=== PATIENT | male | born 1970 | race Caucasian/White ===

== ENCOUNTER 2018-09-16 12:24 | Observation (INO) | payer SELFPAY ==
[2018-09-16 14:13] LABS: ABSOLUTE BASOPHILS # (AUTO) 0.1 10^3/uL (0.0-0.2); ABSOLUTE EOSINOPHILS # (AUTO) 0.4 10^3/uL (0.0-0.6); ABSOLUTE MONOCYTES (AUTO) 0.6 10^3/uL (0.1-1.4); ABSOLUTE NEUT (AUTO) 8.3 10^3/uL (1.7-8.2); BASOPHILS % (AUTO) 0.8 % (0-2); EOSINOPHILS % (AUTO) 3.8 % (0-6); HEMATOCRIT 42.3 % (37.9-51.0); LYMPHOCYTES % (AUTO) 10.1 % (13-45); MEAN CORPUSCULAR HEMOGLOBIN 29.2 pg (27.0-33.4); MEAN CORPUSCULAR VOLUME 89 fl (80-97); MONOCYTES % (AUTO) 5.4 % (3-13); PLATELET COUNT 246 10^3/uL (150-450); RED BLOOD COUNT 4.77 10^6/uL (4.35-5.55); RED CELL DISTRIBUTION WIDTH 14.5 % (11.5-14.0); SEGMENTED NEUTROPHILS % (AUTO) 79.9 % (42-78); TOTAL CELLS COUNTED % (AUTO) 100 %; WHITE BLOOD COUNT 10.4 10^3/uL (4.0-10.5)
[2018-09-16 14:16] LABS: INTERNATIONAL RATION (INR) 1.19; PROTHROMBIN TIME 15.7 SEC (11.4-15.4)
[2018-09-16 14:23] LABS: ALANINE AMINOTRANSFERASE 151 U/L (21-72); ALBUMIN 4.2 g/dL (3.5-5.0); ALKALINE PHOSPHATASE 87 U/L (38-126); ANION GAP 13 (5-19); ASPARTATE AMINO TRANSFERASE 110 U/L (17-59); BILIRUBIN,DIRECT 0.3 mg/dL (0.0-0.4); BILIRUBIN,TOTAL 0.9 mg/dL (0.2-1.3); BLOOD UREA NITROGEN 20 mg/dL (7-20); CALCIUM 9.7 mg/dL (8.4-10.2); CARBON DIOXIDE 21 mmol/L (22-30); CHLORIDE 110 mmol/L (98-107); CREATINE KINASE 116 U/L (55-170); GLUCOSE 107 mg/dL (75-110); POTASSIUM 4.6 mmol/L (3.6-5.0); SODIUM 144.1 mmol/L (137-145); TOTAL PROTEIN 6.7 g/dL (6.3-8.2)
--- NOTE | 2018-09-16 14:33 | RADIOLOGY REPORT (SQ) ---
EXAM DESCRIPTION: CHEST SINGLE VIEW COMPLETED DATE/TIME: 09/16/2018 2:18 pm REASON FOR STUDY: chest pain COMPARISON: None. EXAM PARAMETERS: NUMBER OF VIEWS: One view. TECHNIQUE: Single frontal radiographic view of the chest acquired. RADIATION DOSE: NA LIMITATIONS: None. FINDINGS: LUNGS AND PLEURA: No opacities, masses or pneumothorax. No pleural effusion. MEDIASTINUM AND HILAR STRUCTURES: No masses. Contour normal. HEART AND VASCULAR STRUCTURES: Heart normal in size. Normal vasculature. BONES: No acute findings. HARDWARE: None in the chest. OTHER: No other significant finding. IMPRESSION: No acute abnormality of the lungs in AP projection. TECHNICAL DOCUMENTATION: JOB ID: [id number] [employer]- All Rights Reserved Reading location - IP/workstation name: [email or web address]
[2018-09-16 14:46] LABS: CREATINE KINASE MB 1.96 ng/mL (<4.55)
[2018-09-16 14:47] LABS: TROPONIN I < 0.012 ng/mL
[2018-09-16] MEDS ORDERED: ACETAMINOPHEN 325 MG TABLET PO ONE (15:25)
[2018-09-16] MEDS ORDERED: MORPHINE SULFATE 10 MG/ML INJ IV ONE (15:25)
[2018-09-16] MEDS ORDERED: ONDANSETRON HCL INJ/PF 4 MG/2 ML SDV IV ONE (15:25)
[2018-09-16] MEDS ORDERED: RINGERS SOLUTION,LACTATED 1,000 ML IV ONE (15:32)
[2018-09-16] MEDS ORDERED: DEXTROSE 40% GEL 15 GM TUBE PO PRN ×2 (16:01)
[2018-09-16] MEDS ORDERED: GLUCAGON,HUMAN RECOMB 1 MG INJ IM PRN (16:01)
[2018-09-16] MEDS ORDERED: DEXTROSE 50%-WATER 25 GM/50 ML DISP.SYRIN IV PRN ×2 (16:01)
[2018-09-16] MEDS ORDERED: (PENDING PHARMACY ID) (Oxycodone Hcl/Acetaminophen [Percocet 10-325 Mg Tablet] 1 TAB) PO PRN (16:02)
--- NOTE | 2018-09-16 16:14 | PDOC H&P ---
History of Present Illness Patient complains of: loss of consciousness History of Present Illness: KD TOWNSEND is a 48 year old male with a past medical history of hypertension, diabetes mellitus type 2, hyperlipidemia, remote history of viral pericarditis and anxiety who was brought in due to loss of consciousness. History is obtained from patient and family on the bedside. Patient was reportedly on his back outside the house working under his trailer board. Patient and his son say that he likely must have that faulty wiring and get grounded as patient went into a generalized tonic posture and lost conscious ness. Patient does state that he was working on some wiring prior to the episode. He denies prior history of seizures. Per family, 1 of the neighbors who was reportedly trained in CPR deemed that he did not have a pulse. He was also reportedly noted to be cyanotic hence his neighbor did chest compressions for a minute after which he reportedly started breathing, his color came back and patient regained consciousness and was back to his baseline. No urinary or bowel incontinence. In the ER, patient denies any chest pain or shortness of breath. He is stable normal vital signs and is saturating at 97% on room air. Work-up is remarkable for elevated creatinine. EKG does show T wave inversions in the inferior lateral leads. Troponin is normal. Past Medical History Cardiac Medical History: Reports: Hyperlipidema, Hypertension Pulmonary Medical History: Reports: Asthma Endocrine Medical History: Reports: Diabetes Mellitus Type 2 - borderline, on metformin GI Medical History: Reports: Gastroesophageal Reflux Disease Past Surgical History Past Surgical History: Reports: Orthopedic Surgery - back Social History Smoking Status: Never Smoker Family History Parental Family History Reviewed: Yes - No premature CAD Children Family History Reviewed: No Sibling(s) Family History Reviewed.: No Medication/Allergy Home Medications: Aspirin [Aspirin 325 mg Tablet] 325 mg PO DAILY 09/16/18 Atorvastatin Calcium [Lipitor 20 mg Tablet] 20 mg PO QHS 09/16/18 Fluticasone Propionate [Flonase Nasal [place] 50 Mcg/[place] 16 gm] 09/16/18 Lisinopril [Prinivil] 10 mg PO DAILY 09/16/18 Metformin HCl 500 mg PO BID 09/16/18 Mometasone Furoate [Asmanex] 220 mcg IH 09/16/18 Oxycodone HCl/Acetaminophen [Percocet 10-325 Mg Tablet] 1 tab PO QIDP PRN 09/16/18 Ranitidine HCl 150 mg PO BID 09/16/18 Sertraline HCl 100 mg PO DAILY 09/16/18 Allergies/Adverse Reactions: No Known Allergies Allergy (Unverified 09/16/18 12:33) Review of Systems All systems: reviewed and no additional remarkable complaints except as stated - as mentioned in HPI Physical Exam Vital Signs: Temp Pulse Resp BP Pulse Ox 99.2 F 98 13 127/67 H 95 09/16/18 12:33 09/16/18 12:33 09/16/18 14:01 09/16/18 14:01 09/16/18 14:03 Intake & Output 09/15/18 09/16/18 09/17/18 06:59 06:59 06:59 Weight 269 lb 2.951 oz General appearance: PRESENT: no acute distress, well-developed, well-nourished Head exam: PRESENT: atraumatic, normocephalic Eye exam: PRESENT: conjunctiva pink, EOMI, PERRLA. ABSENT: scleral icterus Ear exam: PRESENT: normal external ear exam Mouth exam: PRESENT: moist, tongue midline Neck exam: ABSENT: carotid bruit, JVD, lymphadenopathy, thyromegaly Respiratory exam: PRESENT: clear to auscultation riley. ABSENT: rales, rhonchi, wheezes Cardiovascular exam: PRESENT: RRR. ABSENT: diastolic murmur, rubs, systolic murmur Pulses: PRESENT: normal dorsalis pedis pul GI/Abdominal exam: PRESENT: normal bowel sounds, soft. ABSENT: distended, guarding, mass, organolmegaly, rebound, tenderness Rectal exam: PRESENT: deferred Neurological exam: PRESENT: alert, awake, oriented to person, oriented to place, oriented to time, oriented to situation, CN II-XII grossly intact. ABSENT: motor sensory deficit Results Laboratory Results: 09/16/18 12:44 09/16/18 12:44 09/16/18 09/16/18 12:44 12:44 WBC 10.4 RBC 4.77 Hgb 14.0 Hct 42.3 MCV 89 MCH 29.2 MCHC 33.0 RDW 14.5 H Plt Count 246 Seg Neutrophils % 79.9 H Lymphocytes % 10.1 L Monocytes % 5.4 Eosinophils % 3.8 Basophils % 0.8 Absolute Neutrophils 8.3 H Absolute Lymphocytes 1.0 Absolute Monocytes 0.6 Absolute Eosinophils 0.4 Absolute Basophils 0.1 Sodium 144.1 Potassium 4.6 Chloride 110 H Carbon Dioxide 21 L Anion Gap 13 BUN 20 Creatinine 1.48 H Est GFR ( Amer) > 60 Est GFR (Non-Af Amer) 51 L Glucose 107 Calcium 9.7 Total Bilirubin 0.9 AST 110 H ALT 151 H Alkaline Phosphatase 87 Total Protein 6.7 Albumin 4.2 09/16/18 09/16/18 12:44 12:44 Creatine Kinase 116 CK-MB (CK-2) 1.96 Troponin I < 0.012 Impressions: Chest X-Ray 09/16/18 14:03 IMPRESSION: No acute abnormality of the lungs in AP projection. Assessment and Plan - Diagnosis (1) Respiratory arrest Is this a current diagnosis for this admission?: Yes Plan: Resolved. Appears patient had a brief respiratory episode while on the field. Likely related to possible electrocution. (2) Syncope Is this a current diagnosis for this admission?: Yes Plan: Likely related to possible electrocution. Nevertheless we will also check orthostatic vital signs. Will observe patient on telemetry overnight. As mentioned, EKG shows T wave inversions on inferior lateral leads. Cardiac enzymes are normal even after a minute of chest compressions. He denies any chest pain or shortness of breath. (3) HTN (hypertension) Is this a current diagnosis for this admission?: Yes Plan: Will resume home medication. (4) Diabetes mellitus type 2 in obese Is this a current diagnosis for this admission?: Yes Plan: He takes metformin at home. (5) CKD (chronic kidney disease) Is this a current diagnosis for this admission?: Yes Plan: Creatinine is elevated at 1.4. Patient does report he has a known chronic kidney disease. No baseline creatinine on record. We will recheck a BMP tomorrow. - Time Time Spent with patient: 25-34 minutes
--- NOTE | 2018-09-16 16:16 | ER Document Report ---
ED General - General Chief Complaint: Syncope Stated Complaint: SYNCOPE Time Seen by Provider: 09/16/18 15:09 Mode of Arrival: Medic Information source: Patient, Relative Notes: This is a 48-year-old man who was brought in by EMS after a potential electrocution and cardiac arrest at home. Patient was out in his yard without a shirt on his back working on a boat. He was underneath a trailer. He was lying on up sheet of metal as he worked on the boat above him. He did have a sapphire stylus grinder that was by his side. He states all of a sudden he felt an electric shock. Patient's son states that he became unresponsive and he went to get help and the neighbor came over (the neighbor no CPR) and started CPR for approximately 1 minute to 1 minute and a half. I did speak to the neighbor over the phone and she states that the patient was blue and did not have a pulse. After a short period of chest compressions, his chest started moving and he started to become aroused. He was answering questions by the time EMS arrived. He complains of generalized weakness at this time. He denies any chest pain. - HPI Onset: Just prior to arrival Onset/Duration: Sudden Quality of pain: No pain Severity: None Pain Level: Denies Associated symptoms: denies: Chest pain, Fever, Shortness of breath Exacerbated by: Denies Relieved by: Denies Similar symptoms previously: No Recently seen / treated by doctor: No - Related Data Allergies/Adverse Reactions: tramadol Allergy (Verified 09/16/18 18:45) Past Medical History - General Information source: Patient - Social History Smoking Status: Never Smoker Cigarette use (# per day): No Chew tobacco use (# tins/day): No Frequency of alcohol use: Occasional Drug Abuse: None Lives with: Family Family History: None Patient has suicidal ideation: No Patient has homicidal ideation: No - Past Medical History Cardiac Medical History: Reports: Hx Hypercholesterolemia, Hx Hypertension Pulmonary Medical History: Reports: Hx Asthma Endocrine Medical History: Reports: Hx Diabetes Mellitus Type 2 - borderline, on metformin Renal/ Medical History: Denies: Hx Peritoneal Dialysis GI Medical History: Reports: Hx Gastroesophageal Reflux Disease Past Surgical History: Reports: Hx Orthopedic Surgery - back Review of Systems - Review of Systems Constitutional: denies: Chills, Fever EENT: No symptoms reported Cardiovascular: See HPI Respiratory: No symptoms reported Gastrointestinal: No symptoms reported Genitourinary: No symptoms reported Male Genitourinary: No symptoms reported Musculoskeletal: No symptoms reported Skin: No symptoms reported Hematologic/Lymphatic: No symptoms reported Neurological/Psychological: No symptoms reported Physical Exam - Vital signs Vitals: Temp Pulse Resp BP Pulse Ox 99.2 F 98 12 158/91 H 94 09/16/18 12:33 09/16/18 12:33 09/16/18 12:33 09/16/18 12:33 09/16/18 12:33 Notes: Physical exam: GENERAL: Blood pressure was 160/73, pulse 90, respiratory rate 18, patient alert and oriented x3, complaining of mild headache. HEAD: Atraumatic, normocephalic. EYES: Pupils equal round and reactive to light, extraocular movements intact, sclera anicteric, conjunctiva are normal. ENT: TMs normal, nares patent, oropharynx clear without exudates. Moist mucous membranes. NECK: Normal range of motion, supple without obvious mass or JVD. LUNGS: Breath sounds clear to auscultation bilaterally and equal. No wheezes rales or rhonchi. HEART: Regular rate and rhythm without murmurs, rubs or gallops. ABDOMEN: Soft, normoactive bowel sounds. No tenderness to palpation. No guarding, no rebound. No masses appreciated. EXTREMITIES: Normal range of motion, no pitting or edema. No clubbing or cyanosis. NEUROLOGICAL: Cranial nerves II through XII grossly intact. Normal speech, moving all extremities. PSYCH: Normal mood, normal affect. SKIN: Warm, Dry, normal turgor, no rashes or lesions noted. Course - Re-evaluation Re-evalutation: 09/16/18 16:31 Patient is noted to be orthostatic at this time. We will continue IV fluids. - Vital Signs Vital signs: Temp Pulse Resp BP Pulse Ox 98.1 F 66 14 157/84 H 99 09/16/18 19:24 09/16/18 19:24 09/16/18 19:24 09/16/18 19:24 09/16/18 19:24 - Laboratory Result Diagrams: 09/16/18 12:44 09/16/18 12:44 Laboratory results interpreted by me: 09/16/18 09/16/18 09/16/18 12:44 12:44 12:44 RDW 14.5 H Seg Neutrophils % 79.9 H Lymphocytes % 10.1 L Absolute Neutrophils 8.3 H PT 15.7 H Chloride 110 H Carbon Dioxide 21 L Creatinine 1.48 H Est GFR (Non-Af Amer) 51 L AST 110 H ALT 151 H Urine Protein Urine Blood 09/16/18 14:59 RDW Seg Neutrophils % Lymphocytes % Absolute Neutrophils PT Chloride Carbon Dioxide Creatinine Est GFR (Non-Af Amer) AST ALT Urine Protein 30 H Urine Blood SMALL H - Diagnostic Test Radiology reviewed: Image reviewed, Reports reviewed - EKG showed sinus rhythm with inverted T's (no old EKG for comparison). - EKG Interpretation by Sd Rate: Normal Rhythm: NSR - EKG shows normal sinus rhythm with a ventricular rate of 95. There is inverted T waves globally. There is no old EKG to compare. Discharge - Discharge Clinical Impression: Syncope, Electric shock Condition: Stable Disposition: ADMITTED OBSERVATION Admitting Provider: Samra (Hospitalist) Unit Admitted: Telemetry
--- NOTE | 2018-09-16 16:22 | EKG REPORT ---
SEVERITY:- ABNORMAL ECG - SINUS RHYTHM PROBABLE LEFT ATRIAL ABNORMALITY NONSPECIFIC T ABNORMALITIES, DIFFUSE LEADS LVH : Confirmed by: Wendy Gayel 16-Sep-2018 16:22:07
[2018-09-16] MEDS: NORMAL SALINE 1000 ML 1,000 ML IV PRN (16:54)
[2018-09-16 16:55] LABS: AMORPHOUS SEDIMENT,URINE TRACE /HPF; APPEARANCE,URINE TURBID; BILIRUBIN,URINE NEGATIVE (NEGATIVE); COLOR,URINE AMBER; GLUCOSE, URINE NEGATIVE (NEGATIVE); KETONES,URINE NEGATIVE (NEGATIVE); LEUKOCYTE ESTERASE,URINE NEGATIVE (NEGATIVE); NITRITE,URINE NEGATIVE (NEGATIVE); PROTEIN,URINE 30 mg/dL (NEGATIVE); URINE SPECIFIC GRAVITY 1.017; UROBILINOGEN,URINE NEGATIVE mg/dL (<2.0)
[2018-09-16] MEDS ORDERED: (PENDING PHARMACY ID) (Ranitidine Hcl [Ranitidine Hcl] 150 MG) PO SCH (18:00)
[2018-09-16] MEDS: FAMOTIDINE 20 MG TABLET PO SCH (18:12)
[2018-09-16] MEDS: INSULIN LISPRO 100 UNIT/ML 3 ML VIAL SUBCUT SCH (21:32)
[2018-09-16] MEDS: OXYCODONE-ACETAMINOPHEN 5-325 MG TABLET PO PRN (21:40)
[2018-09-16] MEDS: HEPARIN SOD (PORCINE) 5,000 UNIT/ML 1 ML SYRINGE SUBCUT SCH (21:41)
[2018-09-16] MEDS: OXYCODONE HCL IR 5 MG TABLET PO PRN (21:41)
[2018-09-16] MEDS ORDERED: ATORVASTATIN CALCIUM 20 MG TABLET PO SCH (22:00)
[2018-09-17] MEDS: HEPARIN SOD (PORCINE) 5,000 UNIT/ML 1 ML SYRINGE SUBCUT SCH (06:03)
[2018-09-17] MEDS: NORMAL SALINE 1000 ML 1,000 ML IV PRN (06:05)
[2018-09-17] MEDS: OXYCODONE-ACETAMINOPHEN 5-325 MG TABLET PO PRN (06:58)
[2018-09-17] MEDS: OXYCODONE HCL IR 5 MG TABLET PO PRN (06:59)
[2018-09-17 07:17] LABS: ANION GAP 8 (5-19); BLOOD UREA NITROGEN 18 mg/dL (7-20); CALCIUM 9.2 mg/dL (8.4-10.2); CARBON DIOXIDE 26 mmol/L (22-30); CHLORIDE 109 mmol/L (98-107); GLUCOSE 112 mg/dL (75-110); POTASSIUM 4.8 mmol/L (3.6-5.0); SODIUM 142.6 mmol/L (137-145)
[2018-09-17] MEDS: INSULIN LISPRO 100 UNIT/ML 3 ML VIAL SUBCUT SCH ×2 (09:24→11:17)
[2018-09-17] MEDS: FAMOTIDINE 20 MG TABLET PO SCH (09:28)
[2018-09-17 09:41] LABS: ALANINE AMINOTRANSFERASE 103 U/L (21-72); ALBUMIN 3.6 g/dL (3.5-5.0); ALKALINE PHOSPHATASE 81 U/L (38-126); ASPARTATE AMINO TRANSFERASE 51 U/L (17-59); BILIRUBIN,DIRECT 0.2 mg/dL (0.0-0.4); BILIRUBIN,TOTAL 0.5 mg/dL (0.2-1.3); CREATINE KINASE 369 U/L (55-170); TOTAL PROTEIN 5.9 g/dL (6.3-8.2)
[2018-09-17] MEDS ORDERED: LISINOPRIL 10 MG TABLET PO SCH (10:00)
[2018-09-17] MEDS ORDERED: ASPIRIN 325 MG TABLET PO SCH (10:00)
[2018-09-17] MEDS ORDERED: SERTRALINE HCL 50 MG TABLET PO SCH (10:00)
[2018-09-17 11:13] VITALS: BP 158/91
--- NOTE | 2018-09-17 11:52 | PDOC DISCHARGE SUMMARY ---
General - Admit/Disc Date/PCP Admission Date/Primary Care Provider: 09/16/18 16:37 Discharge Date: 09/17/18 - Discharge Diagnosis (1) Respiratory arrest Is this a current diagnosis for this admission?: Yes (2) Electrocution Is this a current diagnosis for this admission?: Yes (3) Rhabdomyolysis Is this a current diagnosis for this admission?: Yes (4) Syncope Is this a current diagnosis for this admission?: Yes (5) HTN (hypertension) Is this a current diagnosis for this admission?: Yes (6) Diabetes mellitus type 2 in obese Is this a current diagnosis for this admission?: Yes (7) CKD (chronic kidney disease) Is this a current diagnosis for this admission?: Yes - Additional Information Resuscitation Status: Full Code Discharge Diet: As Tolerated, Diabetic Discharge Activity: Activity As Tolerated, Balance Activity w/Rest Home Medications: Aspirin [Aspirin 325 mg Tablet] 325 mg PO DAILY 09/16/18 Atorvastatin Calcium [Lipitor 20 mg Tablet] 20 mg PO QHS 09/16/18 Fluticasone Propionate [Flonase Nasal [place] 50 Mcg/[place] 16 gm] 1 spray NASL DAILY 09/16/18 Lisinopril [Prinivil] 10 mg PO DAILY 09/16/18 Metformin HCl 500 mg PO BID 09/16/18 Mometasone Furoate [Asmanex] 2 puff IH BID 09/16/18 Oxycodone HCl/Acetaminophen [Percocet 10-325 mg Tablet] 1 tab PO QIDP PRN 09/16/18 Ranitidine HCl 150 mg PO BID 09/16/18 Sertraline HCl 100 mg PO DAILY 09/16/18 Ibuprofen [Advil] 800 mg PO BIDP PRN 09/17/18 History of Present Illness History of Present Illness: KD TOWNSEND is a 48 year old male with a past medical history of hypertension, diabetes mellitus type 2, hyperlipidemia, remote history of viral pericarditis and anxiety who was brought in due to loss of consciousness. History is obtained from patient and family on the bedside. Patient was reportedly on his back outside the house working under his trailer board. Patient and his son say that he likely must have that faulty wiring and get grounded as patient went into a generalized tonic posture and lost consciousness . Patient does state that he was working on some wiring prior to the episode. He denies prior history of seizures. Per family, 1 of the neighbors who was reportedly trained in CPR deemed that he did not have a pulse. He was also reportedly noted to be cyanotic hence his neighbor did chest compressions for a minute after which he reportedly started breathing, his color came back and patient regained consciousness and was back to his baseline. No urinary or bowel incontinence. In the ER, patient denies any chest pain or shortness of breath. He is stable normal vital signs and is saturating at 97% on room air. Work-up is remarkable for elevated creatinine. EKG does show T wave inversions in the inferior lateral leads. Troponin is normal. Hospital Course Hospital Course: KD TOWNSEND is a 48 year old male with a past medical history of hypertension, diabetes mellitus type 2, chronic kidney disease, hyperlipidemia, remote history of viral pericarditis and anxiety who was brought in due to loss of consciousness likely form electrocution. He was admitted for observation on telemetry. Family did confirm later that he got electrocuted as photos at home showed a burned yovana/wire which apparently fell on the aluminum board he was lying in while repairing the boat trailer. No acute issues or event on telemetry. His CK level did slightly go up. He was given IV fluids and was recommended to optimize hydration at home. He will closely ff-up with his PCP. Physical Exam Vital Signs: Temp Pulse Resp BP Pulse Ox 97.6 F 64 19 158/91 H 96 09/17/18 11:00 09/17/18 11:00 09/17/18 11:00 09/17/18 11:00 09/17/18 11:00 Intake & Output 09/16/18 09/17/18 09/18/18 06:59 06:59 06:59 Intake Total 2589 Output Total 500 Balance 2089 Weight 266 lb 5.094 oz General appearance: PRESENT: no acute distress, well-developed, well-nourished Head exam: PRESENT: atraumatic, normocephalic Eye exam: PRESENT: conjunctiva pink, EOMI, PERRLA. ABSENT: scleral icterus Ear exam: PRESENT: normal external ear exam Mouth exam: PRESENT: moist, tongue midline Neck exam: ABSENT: carotid bruit, JVD, lymphadenopathy, thyromegaly Respiratory exam: PRESENT: clear to auscultation riley. ABSENT: rales, rhonchi, wheezes Cardiovascular exam: PRESENT: RRR. ABSENT: diastolic murmur, rubs, systolic murmur Pulses: PRESENT: normal dorsalis pedis pul GI/Abdominal exam: PRESENT: normal bowel sounds, soft. ABSENT: distended, guarding, mass, organolmegaly, rebound, tenderness Rectal exam: PRESENT: deferred Extremities exam: PRESENT: full ROM. ABSENT: calf tenderness, clubbing, pedal edema Neurological exam: PRESENT: alert, awake, oriented to person, oriented to place, oriented to time, oriented to situation, CN II-XII grossly intact. ABSENT: motor sensory deficit Results Laboratory Results: 09/16/18 12:44 09/17/18 06:47 09/16/18 09/16/18 09/16/18 12:44 12:44 14:59 WBC 10.4 RBC 4.77 Hgb 14.0 Hct 42.3 MCV 89 MCH 29.2 MCHC 33.0 RDW 14.5 H Plt Count 246 Seg Neutrophils % 79.9 H Lymphocytes % 10.1 L Monocytes % 5.4 Eosinophils % 3.8 Basophils % 0.8 Absolute Neutrophils 8.3 H Absolute Lymphocytes 1.0 Absolute Monocytes 0.6 Absolute Eosinophils 0.4 Absolute Basophils 0.1 Sodium 144.1 Potassium 4.6 Chloride 110 H Carbon Dioxide 21 L Anion Gap 13 BUN 20 Creatinine 1.48 H Est GFR ( Amer) > 60 Est GFR (Non-Af Amer) 51 L Glucose 107 Calcium 9.7 Total Bilirubin 0.9 AST 110 H ALT 151 H Alkaline Phosphatase 87 Total Protein 6.7 Albumin 4.2 Urine Color HARRIETT Urine Appearance TURBID Urine pH 5.0 Ur Specific [place] 1.017 Urine Protein 30 H Urine Glucose (UA) NEGATIVE Urine Ketones NEGATIVE Urine Blood SMALL H Urine Nitrite NEGATIVE Ur Leukocyte Esterase NEGATIVE Urine WBC (Auto) 3 Urine RBC (Auto) 2 09/17/18 09/17/18 06:47 06:47 WBC RBC Hgb Hct MCV MCH MCHC RDW Plt Count Seg Neutrophils % Lymphocytes % Monocytes % Eosinophils % Basophils % Absolute Neutrophils Absolute Lymphocytes Absolute Monocytes Absolute Eosinophils Absolute Basophils Sodium 142.6 Potassium 4.8 Chloride 109 H Carbon Dioxide 26 Anion Gap 8 BUN 18 Creatinine 1.40 H Est GFR ( Amer) > 60 Est GFR (Non-Af Amer) 55 L Glucose 112 H Calcium 9.2 Total Bilirubin 0.5 AST 51 ALT 103 H Alkaline Phosphatase 81 Total Protein 5.9 L Albumin 3.6 Urine Color Urine Appearance Urine pH Ur Specific [place] Urine Protein Urine Glucose (UA) Urine Ketones Urine Blood Urine Nitrite Ur Leukocyte Esterase Urine WBC (Auto) Urine RBC (Auto) 09/16/18 09/16/18 09/17/18 12:44 12:44 06:47 Creatine Kinase 116 369 H CK-MB (CK-2) 1.96 Troponin I < 0.012 Impressions: Chest X-Ray 09/16/18 14:03 IMPRESSION: No acute abnormality of the lungs in AP projection. Qualifiers - * PATIENT BEING DISCHARGED WITH ANY OF THE FOLLOWING DIAGNOSIS: No Acute Heart Failure Is this a Heart Failure Patient?: No
[2018-09-18] MEDS ORDERED: FLUTICASONE NASAL SPRAY 50 MCG/SPRY 120 SPRAY/16 GM NASL SCH (10:00)
== END 2018-09-17 11:57 | disposition home or self-care (01) ==
LOC: ER 12:24 → EH 16:37 → 4S 18:30
PROVIDERS: ADMIT Internal Medicine; ATTEND Internal Medicine
DX: R09.2 Respiratory arrest (principal); T75.4XXA Electrocution, initial encounter; W86.8XXA Exposure to other electric current, initial encounter; Y93.89 Activity, other specified; M62.82 Rhabdomyolysis; R55 Syncope and collapse; E11.22 Type 2 diabetes mellitus with diabetic chronic kidney disease; I12.9 Hypertensive chronic kidney disease with stage 1 through stage 4 chronic kidney disease, or unspecified chronic kidney disease; N18.9 Chronic kidney disease, unspecified; E66.9 Obesity, unspecified; E78.5 Hyperlipidemia, unspecified; R51 Headache; Z79.84 Long term (current) use of oral hypoglycemic drugs; Z79.899 Other long term (current) drug therapy; Z79.82 Long term (current) use of aspirin
CPT/HCPCS: 93005; 99284; 96361; 96374; 96375; 36415 ×2; 82553; 82962 ×2; 82550 ×2; 85025; 85610; 80076; 80048; 80053; 81001; 84484; 71045; 93010; J1644 ×2; J2270; J2405; J7030 ×2; J7120